=== PATIENT | male | born 1955 | race African-American/Black ===

== ENCOUNTER 2024-01-08 20:12 | Emergency (ER) | payer MEDICAID ==
[~2024-01-08] VITALS: Ht 180.3 cm; Wt 77.1 kg
[2024-01-08 20:25] VITALS: BP_SYST 117; PULSE 102; RESP 16; TEMP 97.2; O2SAT 100
[2024-01-08] MEDS: ACYCLOVIR 400 MG TABLET GT ONE (21:37)
[2024-01-08] MEDS ORDERED: ACYC-133 GT (21:45)
[2024-01-09 00:52] VITALS: BP_SYST 94; PULSE 94; RESP 18; O2SAT 100
== END 2024-01-09 00:53 | disposition home or self-care (01) ==
LOC: SED 20:12
DX: B02.9 Zoster without complications (principal); I10 Essential (primary) hypertension; E11.9 Type 2 diabetes mellitus without complications
CPT/HCPCS: 99283